=== PATIENT | female | born 1985 | race Caucasian/White ===

== ENCOUNTER 2024-02-06 08:45 | Emergency (ER) | payer OTHER ==
[~2024-02-06] VITALS: Ht 160 cm; Wt 81.6 kg
[~2024-02-06 08:45] MED LIST: AMOXICILLIN500 MG PO; DIFLUCAN150 MG PO
== END 2024-02-06 12:01 | disposition home or self-care (01) ==
LOC: ED 08:45
DX: S82.65XA Nondisplaced fracture of lateral malleolus of left fibula, initial encounter for closed fracture (principal); S82.55XA Nondisplaced fracture of medial malleolus of left tibia, initial encounter for closed fracture; W10.8XXA Fall (on) (from) other stairs and steps, initial encounter; Y93.89 Activity, other specified; Y92.89 Other specified places as the place of occurrence of the external cause; Y99.8 Other external cause status